=== PATIENT | female | born 1975 | race Caucasian/White ===

== ENCOUNTER 2019-04-05 09:49 | Inpatient (IN) ==
[2019-04-05] MEDS: Ringers Solution, Lactated 1,000 ML IVC SCH ×2 (12:45→18:41)
[2019-04-05] MEDS ORDERED: CeFAZolin Syr 2,000MG/20 ML 2,000 MG/20 ML SYRINGE IVPB ONE (12:51)
[2019-04-05] MEDS ORDERED: Albuterol 2.5 MG/3 ML NEBULIZER IH PRN (12:51)
[2019-04-05] MEDS ORDERED: Ropivacaine/PF 0.5% 30 ML VIAL ONE (15:33)
[2019-04-05] MEDS ORDERED: *HR* Midazolam HCl 2 MG/2 ML VIAL ONE (15:34)
[2019-04-05] MEDS ORDERED: *HR* FentaNYL (PF) 100 MCG/2 ML VIAL ONE (15:34)
[2019-04-05] MEDS ORDERED: *HR* Propofol 200 MG/20 ML VIAL IVP ONE (15:35)
[2019-04-05] MEDS ORDERED: *HR* Promethazine 25 MG/ML VIAL IVP PRN (15:57)
[2019-04-05] MEDS ORDERED: Ondansetron 4 MG/2 ML VIAL IVP ONE ×2 (15:57→17:57)
[2019-04-05] MEDS ORDERED: *HR* OxyCODONE Immed Rel 5 MG TABLET PO PRN (15:57)
[2019-04-05] MEDS ORDERED: *HR* Succinylcholine 200 MG/10 ML VIAL IVP ONE (16:19)
[2019-04-05] MEDS ORDERED: Ondansetron 4 MG/2 ML VIAL ONE (16:19)
[2019-04-05] MEDS ORDERED: Dexamethasone 4 MG/ML VIAL ONE (16:19)
[2019-04-05] MEDS ORDERED: Lidocaine -MPF 4% 5 ML AMPUL ONE (16:19)
[2019-04-05] MEDS ORDERED: *HR* Rocuronium Bromide 50 MG/5 ML VIAL ONE (16:19)
[2019-04-05] MEDS ORDERED: Lidocaine -MPF 2% 2 ML VIAL ONE (16:19)
[2019-04-05] MEDS ORDERED: *HR* Enoxaparin 30 MG/0.3 ML SYRINGE SQ SCH (18:00)
[2019-04-05] MEDS ORDERED: Ethanol\\Acetic Acid\\Na Ace\\Ben 1,000 ML IRRIG.SOLN IR ONE (18:08)
[2019-04-05] MEDS: *HR* HYDROmorphone (PF) 1 MG/ML SYRINGE IVP PRN ×2 (18:10→18:20)
[2019-04-05 18:32] LABS: Hemoglobin 13.1 g/dL (11.5-15.4)
[2019-04-05] MEDS ORDERED: Ringers Solution, Lactated 1,000 ML IVC SCH (19:52)
[2019-04-05] MEDS ORDERED: Sennosides 8.6 MG TABLET PO PRN (19:52)
[2019-04-05] MEDS ORDERED: *HR* OxyCODONE/APAP 5/325 TABLET PO PRN (19:52)
[2019-04-05] MEDS ORDERED: Ondansetron 4 MG/2 ML VIAL IVP PRN (19:52)
[2019-04-05] MEDS ORDERED: MOM Conc 10 ML UD.LIQ PO PRN (19:52)
[2019-04-05] MEDS ORDERED: Naloxone 0.4 MG/ML INJ IVP PRN (19:52)
[2019-04-05] MEDS: *HR* OxyCODONE Immed Rel 5 MG TABLET PO PRN (22:36)
[2019-04-05] MEDS: ceFAZolin 2,000 MG in 0.9 % Sodium Chloride 100 ML IVPB SCH (22:43)
[2019-04-06] MEDS: *HR* OxyCODONE Immed Rel 5 MG TABLET PO PRN ×3 (03:24→11:52)
[2019-04-06] MEDS ORDERED: *HR* Enoxaparin 30 MG/0.3 ML SYRINGE SQ SCH (06:00)
[2019-04-06 06:04] LABS: Hematocrit 33.2 % (35.3-44.9)
[2019-04-06 06:09] LABS: Hemoglobin 11.5 g/dL (11.5-15.4)
[2019-04-06 06:22] LABS: BUN/Creatinine Ratio 18 (6-26); Blood Urea Nitrogen 13 mg/dL (6-20); Calcium 8.8 mg/dL (8.6-10.3); Carbon Dioxide 25 mEq/L (23-29); Chloride 107 mEq/L (98-107); Glucose 138 mg/dL (70-105); Osmolality,Calculated 294 (280-300); Potassium 4.1 mEq/L (3.5-5.1); Sodium 141 mEq/L (136-145); eGFR For African Americans > 60 (> 60); eGFR For Non-African Americans > 60 (> 60)
[2019-04-06 06:42] VITALS: BP 101/60
[2019-04-06] MEDS: ceFAZolin 2,000 MG in 0.9 % Sodium Chloride 100 ML IVPB SCH (07:33)
== END 2019-04-06 12:54 | disposition home health service (06) | DRG 322 ==
LOC: SAMDAY 09:49 → 3NENU 19:12
PROVIDERS: ADMIT Orthopaedic Surgery; ATTEND Orthopaedic Surgery